=== PATIENT | male | born 1940 | race Caucasian/White ===

== ENCOUNTER → 2017-02-20 | Outpatient (CLI) | payer MEDICARE ==
--- NOTE | 2017-02-20 13:14 | XR ---
Right calcaneus HISTORY: Heel pain 2 views of the right calcaneus No comparisons There is a plantar calcaneal spur present. Enthesophyte present at the insertion of the Achilles tend on. Vascular calcifications are present. Bone mineralization mildly reduced. Alignment is normal. IMPRESSION: Plantar calcaneal spur
== END | disposition home or self-care (01) ==
LOC: RADXRMAIN 10:39
PROVIDERS: ATTEND Family Medicine
DX: M77.31 Calcaneal spur, right foot (principal); M79.671 Pain in right foot

== ENCOUNTER 2021-07-08 09:31 | Emergency (ER) | payer MEDICARE ==
[2021-07-08 09:41] VITALS: BP 121/67; PULSE 72; RESP 18; TEMP 98
--- NOTE | 2021-07-08 10:17 | ED ---
General Adult HPI - General Chief complaint: Fall Stated complaint: fell down 3 stairs, back injury Time Seen by Provider: 07/08/21 09:42 Source: patient, RN notes reviewed, old records reviewed Mode of arrival: ambulatory Limitations: no limitations - History of Present Illness Initial comments: 80-year-old male presenting status post fall which occurred 2 days prior. Patient had injured his left flank. He fallen on icy steps. There is no head or neck trauma. He's had consistent pain at the site of injury with pain with deep breathing or movement. No abdominal pain. No central chest pain. - Related Data Home Medications Medication Instructions Recorded Confirmed Simvastatin 40 mg PO DAILY 11/25/13 11/06/15 Aspirin EC [Ecotrin] 325 mg PO DAILY 11/04/15 11/06/15 Montelukast [Singulair] 10 mg PO HS 11/04/15 11/06/15 Previous Rx's Medication Instructions Recorded HYDROcodone/APAP 5-325MG [[place] 1 tab PO Q6HR PRN #12 tab 07/08/21 5-325] Allergies Allergy/AdvReac Type Severity Reaction Status Date / Time No Known Allergies Allergy Verified 07/08/21 09:36 Review of Systems ROS Statement: Those systems with pertinent positive or pertinent negative responses have been documented in the HPI. ROS Other: All systems not noted in ROS Statement are negative. Past Medical History Past Medical History: Cancer, Hypertension Additional Past Medical History / Comment(s): Prostate- in remission. History of Any Multi-Drug Resistant Organisms: None Reported Past Surgical History: Prostate Surgery Past Psychological History: No Psychological Hx Reported Smoking Status: Never smoker Past Alcohol Use History: None Reported Past Drug Use History: None Reported General Exam Limitations: no limitations General appearance: alert, in no apparent distress Head exam: Present: atraumatic, normocephalic Eye exam: Present: normal appearance, PERRL ENT exam: Present: normal exam Neck exam: Present: normal inspection. Absent: tenderness, meningismus Respiratory exam: Present: chest wall tenderness (Chest wall tenderness, left posterior lower with this ecchymosis). Absent: respiratory distress Cardiovascular Exam: Present: regular rate, normal rhythm GI/Abdominal exam: Present: soft. Absent: distended, tenderness, guarding Extremities exam: Present: normal inspection, normal capillary refill. Absent: calf tenderness Neurological exam: Present: alert, oriented X3, CN II-XII intact, normal gait. Absent: motor sensory deficit Psychiatric exam: Present: normal affect, normal mood Skin exam: Present: warm, dry, intact. Absent: cyanosis, diaphoretic Course Vital Signs 07/08/21 09:37 Temperature 98 F Pulse Rate 72 Respiratory 18 Rate Blood Pressure 121/67 O2 Sat by Pulse 98 Oximetry Medical Decision Making - Medical Decision Making 80-year-old male presents status post fall which occurred several days ago. He has point tenderness over the left posterior lateral chest wall. X-ray of the ribs and chest is performed. This does show to minimally displaced eighth rib fracture and questionable fractures of the seventh and ninth ribs. There is no pneumothorax. There is no underlying airspace disease. Patient will be prescribed pain medication and incentive spirometer. Disposition Clinical Impression: Fall, Ribs, multiple fractures Disposition: HOME SELF-CARE Condition: Fair Instructions (If sedation given, give patient instructions): Rib Fracture (ED) Prescriptions: HYDROcodone/APAP 5-325MG [[place] 5-325] 1 tab PO Q6HR PRN #12 tab PRN Reason: Pain Is patient prescribed a controlled substance at d/c from ED?: No Referrals: Daniele Jackson DO [Primary Care Provider] - 1-2 days Time of Disposition: 10:26
--- NOTE | 2021-07-08 10:23 | XR ---
EXAMINATION TYPE: XR ribs LT w pa chest xray DATE OF EXAM: 07/08/2021 COMPARISON: NONE HISTORY: 80 years Male. STUDY INDICATION GIVEN: fall . TECHNIQUE: Chest radiograph. 4 radiographs of the left ribs. IMPRESSION: No focal airspace disease, pneumothorax or pleural effusion. The cardiomediastinal silhouette is normal in appearance. Mild tortuous appearance of the intrathoracic aorta. Displaced fracture of the posterior left eighth rib. Questionable slightly displaced and nondisplaced fractures of the posterior left seventh and ninth ribs. Mild degenerative changes are seen in the spine.
[2021-07-08] MEDS ORDERED: KETOROLAC 15 MG/ML 1 ML VIAL IM STA (10:30)
== END 2021-07-08 11:13 | disposition home or self-care (01) ==
LOC: EC 09:31
DX: S22.42XA Multiple fractures of ribs, left side, initial encounter for closed fracture (principal); I10 Essential (primary) hypertension; W00.1XXA Fall from stairs and steps due to ice and snow, initial encounter
CPT/HCPCS: 71101; 99284; 96372; J1885

== ENCOUNTER 2022-06-12 09:39 | Day surgery (SDC) | payer MEDICARE ==
[2022-06-07 15:59] VITALS: BMI 28.0
[~2022-06-12 09:39] MED LIST: LACTATED RINGERS 1,000 ML IV SCH
[2022-06-12 10:20] VITALS: RESP 16; TEMP 97.9
[2022-06-12] MEDS ORDERED: PROPOFOL 10 MG/ML 20 ML VIAL IV ONE (10:54)
--- NOTE | 2022-06-12 10:58 | P.GSHP ---
History of Present Illness H&P Date: 06/12/22 Chief Complaint: Rectal bleeding 81-year-old male here for colonoscopy. Recently patient had some rectal bleeding after straining. Personal history of prostate cancer had prostatectomy in the past. No family history of colon cancer. Last colonoscopy many years ago. History of polyp in the past. Past Medical History Past Medical History: Cancer, Deep Vein Thrombosis (DVT), Hyperlipidemia, Hypertension Additional Past Medical History / Comment(s): Prostate- History of Any Multi-Drug Resistant Organisms: None Reported Past Surgical History: Orthopedic Surgery, Prostate Surgery Additional Past Surgical History / Comment(s): PROSTATECTOMY. COLONOSCOPY. RT SHOULDER ROTATOR REPAIR Past Anesthesia/Blood Transfusion Reactions: No Reported Reaction Smoking Status: Never smoker - Past Family History Mother Family Medical History: No Reported History Medications and Allergies Home Medications Medication Instructions Recorded Confirmed Type Simvastatin 40 mg PO DAILY 11/25/13 06/12/22 History Aspirin EC [Ecotrin] 325 mg PO DAILY 11/04/15 06/07/22 History Montelukast [Singulair] 10 mg PO HS 11/04/15 06/12/22 History amLODIPine BESYLATE/BENAZEPRIL 1 cap PO DAILY 06/07/22 06/12/22 History [amLODIPine BESYLATE/BENAZEPRIL 10-20 mg] Allergies Allergy/AdvReac Type Severity Reaction Status Date / Time No Known Allergies Allergy Verified 06/12/22 10:13 Surgical - Exam Vital Signs Temp Pulse Resp BP Pulse Ox 97.9 F 74 16 165/95 95 06/12/22 10:19 06/12/22 10:19 06/12/22 10:19 06/12/22 10:19 06/12/22 10:19 Physical exam: General: Well-developed, well-nourished HEENT: Normocephalic, sclerae nonicteric Abdomen: Nontender, nondistended Extremities: No edema Neuro: Alert and oriented Assessment and Plan (1) Rectal bleeding Narrative/Plan: 81-year-old male rectal bleeding.Will proceed with colonoscopy at this time. Current Visit: Yes Status: Acute Code(s): K62.5 - HEMORRHAGE OF ANUS AND RECTUM SNOMED Code(s): 21335580
--- NOTE | 2022-06-12 11:14 | P.PCN ---
Date of Procedure: 06/12/22 Procedure(s) Performed: PREOPERATIVE DIAGNOSIS: Rectal bleeding POSTOPERATIVE DIAGNOSIS:. Transverse colon polyp, diverticulosis, hemorrhoids PROCEDURE: Colonoscopy with snare polypectomy ANESTHESIA: MAC SURGEON: Logan Flower M.D. SPECIMENS: Polyp ENDOSCOPIC PROCEDURE: The patient was placed on the endoscopy table in the left decubitus position. The Olympus colonoscope was inserted into the anus and passed under direct visualization to the base of the cecum. The appendiceal orifice was visualized. From that point the scope was slowly withdrawn inspecting all surfaces carefully. There were no neoplastic inflammatory or polypoid lesions throughout the cecum and ascending colon. The transverse colon a small polyp was seen and removed using the snare with cautery technique. The remainder of the transverse descending sigmoid and rectum appeared normal. There was left-sided diverticulosis. The patient's prep was slightly suboptimal. At the anus patient had internal and external hemorrhoids without any evidence of recent or active bleeding. The patient was taken to the recovery room in stable condition per anesthesia guidelines. RECOMMENDATIONS: Await biopsy results. Increase dietary fiber.
[2022-06-12 11:30] VITALS: BP 143/81; PULSE 91
== END 2022-06-12 12:00 | disposition home or self-care (01) ==
LOC: ORWHC2ENDO 09:39
PROVIDERS: ATTEND Surgery
DX: K63.5 Polyp of colon (principal); K57.30 Diverticulosis of large intestine without perforation or abscess without bleeding; K64.4 Residual hemorrhoidal skin tags; K64.8 Other hemorrhoids; Z85.46 Personal history of malignant neoplasm of prostate; Z90.79 Acquired absence of other genital organ(s); Z86.718 Personal history of other venous thrombosis and embolism; I10 Essential (primary) hypertension; E78.5 Hyperlipidemia, unspecified; Z98.890 Other specified postprocedural states; Z79.82 Long term (current) use of aspirin; Z79.02 Long term (current) use of antithrombotics/antiplatelets; Z79.811 Long term (current) use of aromatase inhibitors; M19.90 Unspecified osteoarthritis, unspecified site; Z79.899 Other long term (current) drug therapy
CPT/HCPCS: 45385; J2704; 88305

== ENCOUNTER → 2024-04-15 | Outpatient (CLI) | payer MEDICARE ==
--- NOTE | 2024-04-15 14:46 | XR ---
EXAMINATION TYPE: XR chest 2V DATE OF EXAM: 04/15/2024 COMPARISON: NONE CLINICAL INDICATION: Male, 83 years old with history of COUGH/ AFIB NEW ONSET; , TECHNIQUE: XR chest 2V views of the chest. FINDINGS: The lungs are clear and there is no pneumothorax, pleural effusion, or focal pneumonia. Heart size normal and no overt failure. Osseous structures demonstrate hypertrophic and degenerative changes of the spine. Tortuosity of the thoracic aorta. Chronic rib deformities on the left. AC joint arthropath y. IMPRESSION: 1. No acute process. [facility], , 04/15/2024 2:44 PM
== END | disposition home or self-care (01) ==
LOC: RADXRMAIN 14:18
PROVIDERS: ATTEND Family Medicine
DX: M95.4 Acquired deformity of chest and rib (principal); Q25.46 Tortuous aortic arch; M12.819 Other specific arthropathies, not elsewhere classified, unspecified shoulder
CPT/HCPCS: 71046